=== PATIENT | female | born 1990 | race Caucasian/White ===

== ENCOUNTER 2023-10-06 12:19 | Emergency (ER) | payer OTHER ==
[~2023-10-06] VITALS: Ht 170.2 cm; Wt 66.4 kg
[2023-10-06 14:18] VITALS: BP 126/71; TEMP 98.5; O2SAT 99
== END 2023-10-06 14:54 | disposition home or self-care (01) ==
LOC: M ED 12:19
DX: S82.62XA Displaced fracture of lateral malleolus of left fibula, initial encounter for closed fracture (principal); X50.0XXA Overexertion from strenuous movement or load, initial encounter; Y92.9 Unspecified place or not applicable; Y93.68 Activity, volleyball (beach) (court); Y99.9 Unspecified external cause status

== ENCOUNTER → 2023-10-23 | Outpatient (CLI) | payer OTHER | LOC: M SOG 07:57 | PROVIDERS: ATTEND Physician Assistant | DX: M25.572 Pain in left ankle and joints of left foot (principal) ==